=== PATIENT | female | born 1985 | race Asian ===

== ENCOUNTER → 2024-05-18 15:08 | Outpatient (CLI) | payer BC, SELFPAY ==
--- NOTE | 2024-05-18 15:28 | DI.RAD.S_ITS ---
PROCEDURE: XR FOOT RT MIN 3V INDICATIONS: Pain in right foot TECHNIQUE: 3 views of the foot were acquired. COMPARISON: None. FINDINGS: Bones: No fractures or dislocations. Mild hallux valgus angulation of the 1st MTP joint with medial bunion formation. No suspicious bony lesions. Soft tissues: No tibiotalar joint effusion. Achilles tendon appears normal. IMPRESSION: 1. No acute osseous abnormality. If pain persists with conservative management, consider repeat x-ray in 10-14 days or cross-sectional imaging. 2. Mild hallux valgus angulation of the 1st MTP joint with medial bunion formation. Dictated by: Cachorro Briceño M.D. on 05/20/2024 at 12:08 Approved by: Cachorro Briceño M.D. on 05/20/2024 at 12:08
--- NOTE | 2024-05-18 15:28 | DI.RAD.S_ITS ---
PROCEDURE: XR ANKLE RT MIN 3V INDICATIONS: Pain in right foot TECHNIQUE: 3 views of the ankle were acquired. COMPARISON: None. FINDINGS: Bones: No fractures or dislocations. Ankle mortise is normally aligned. No suspicious bony lesions. Soft tissues: No tibiotalar joint effusion. Achilles tendon appears normal. IMPRESSION: No acute osseous abnormality. If pain persists with conservative management, consider repeat x-ray in 10-14 days or cross-sectional imaging. Dictated by: Cachorro Briceño M.D. on 05/20/2024 at 12:09 Approved by: Cachorro Briceño M.D. on 05/20/2024 at 12:09
== END ==
PROVIDERS: PCP Internal Medicine; Referring Provider Internal Medicine; Visit Provider Internal Medicine
DX: M20.11 Hallux valgus (acquired), right foot (principal); M21.611 Bunion of right foot; M25.571 Pain in right ankle and joints of right foot; M79.671 Pain in right foot; G89.29 Other chronic pain
CPT/HCPCS: 73610; 73630

== ENCOUNTER → 2024-11-26 15:17 | Outpatient (CLI) | payer BC, SELFPAY ==
--- NOTE | 2024-11-26 15:19 | DI.RAD.S_ITS ---
PROCEDURE: XR WRIST RT MIN 3V INDICATIONS: DE QUERVAINS TECHNIQUE: 4 views of the wrist were acquired. COMPARISON: None. FINDINGS: Bones: No fractures or dislocations. No suspicious bony lesions. Soft tissues: No suspicious soft tissue calcifications. IMPRESSION: No acute bony abnormality. Dictated by: Raza Guaman M.D. on 11/27/2024 at 2:43 Approved by: Raza Guaman M.D. on 11/27/2024 at 2:45
== END ==
PROVIDERS: PCP Registered Nurse; Referring Provider Registered Nurse; Visit Provider Registered Nurse
DX: M65.4 Radial styloid tenosynovitis [de Quervain] (principal)
CPT/HCPCS: 73110

== ENCOUNTER → 2024-12-10 11:49 | Outpatient (CLI) | payer BC, SELFPAY ==
--- NOTE | 2024-12-10 11:51 | DI.MG.S_ITS ---
MM screening mammo BI: 12/10/2024. BI-RADS: 1 CLINICAL: 39-year old female for bilateral screening mammogram. Tyrer-Cuzick lifetime risk of 13.9%. No personal or first-degree family history of breast cancer. PRIOR EXAMS: None. This is a baseline mammogram. MAMMOGRAPHY TECHNIQUE: 2D and 3D (tomosynthesis) digital mammographic views obtained, with additional images as needed for full coverage. Current study was also evaluated with a Computer Aided Detection (CAD) system. DENSITY C. The breasts are heterogeneously dense, which may obscure small masses. MAMMOGRAPHY FINDINGS Bilateral: No suspicious mass, asymmetry, microcalcification, or other abnormality seen. IMPRESSION: * No evidence of malignancy. RECOMMENDATIONS Bilateral * Annual screening mammography. OVERALL ASSESSMENT CATEGORY BI-RADS-1: Negative. [employer] recommends annual screening mammography beginning at age 40 for women with average risk of breast cancer. ELECTRONICALLY SIGNED: Opal Childers M.D. on 12/10/2024 at 11:19:21 PM PT Interpreting Station ID: [id number]
== END ==
PROVIDERS: PCP Registered Nurse; Referring Provider Registered Nurse; Visit Provider Registered Nurse
DX: Z12.31 Encounter for screening mammogram for malignant neoplasm of breast (principal); R92.333 Mammographic heterogeneous density, bilateral breasts
CPT/HCPCS: 77063; 77067